=== PATIENT | male | born 1945 | race Caucasian/White ===

== ENCOUNTER 2020-12-05 09:43 | Outpatient (REF) | payer MEDICARE, SELFPAY ==
--- NOTE | 2020-12-05 09:30 | EMG_ITS ---
This is a 75-year-old man with a 4-month history of left hand numbness. There is pain. No list of medication is available. PHYSICAL EXAMINATION: On examination, he has mild weakness of the abductor pollicis brevis on the left. No atrophy. No sensory findings or Tinel's. IMPRESSION: Carpal tunnel syndrome. Nerve conduction EMG study: Moderate to severe carpal tunnel syndrome on the left. 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 Normal EMG of the left C5-T1 innervated muscles. MD THEODORA Mcconnell/JUAN / [id number]
== END 2020-12-05 09:44 | disposition home or self-care (01) ==
LOC: HO.NEURO 09:43
PROVIDERS: PCP Internal Medicine; Visit Provider Internal Medicine
DX: R20.0 Anesthesia of skin (principal)
CPT/HCPCS: 95885; 95910

== ENCOUNTER 2021-03-15 06:47 | Outpatient (REF) | payer MEDICARE, SELFPAY ==
[2021-03-15 11:12] LABS: MANUAL DIFF FLAG NO
[2021-03-15 11:19] LABS: Basophils Percent Auto 0.6 % (0-2); Eosinophils Absolute Auto 0.2 X10*3/uL (0.0-0.4); Eosinophils Percent Auto 2.7 % (0-4); Hemoglobin 13.7 g/dl (14.0-18.0); Imm Gran Abs Auto 0.01 X10*3/uL (0.00-0.03); Imm Gran Pct Auto 0.1 % (0.0-0.4); Lymphocytes Absolute Auto 1.2 X10*3/uL (1.2-4.9); Lymphocytes Percent Auto 18.2 % (20-40); Mean Corpuscular HGB Conc 32.6 g/dl (31.0-36.0); Mean Corpuscular Hemoglobin 29.1 pg (27.0-33.0); Mean Corpuscular Volume 89.2 fL (80.0-98.0); Mean Platelet Volume 11.4 fL (9.4-12.4); Monocytes Absolute Auto 0.6 X10*3/uL (0.1-1.2); Monocytes Percent Auto 9.5 % (2-11); Neutrophils Absolute Auto 4.7 x10*3/uL (2.0-8.3); Neutrophils Percent Auto 68.9 % (45-73); Platelet Count 221 X10*3/uL (160-400); Red Blood Count 4.71 X10*6/uL (4.60-5.80); Red Cell Distribution Width 11.9 % (11.0-16.0); White Blood Count 6.8 X10*3/uL (4.8-10.8)
[2021-03-15 11:36] LABS: Alanine Aminotransferase 19 U/L (0-40); Albumin Level 3.9 g/dL (3.5-5.0); Alkaline Phosphatase 57 U/L (39-117); Anion Gap 14 (12-20); Aspartate Amino Transferase 30 U/L (5-37); Bilirubin Total 0.5 mg/dL (0.0-1.0); Blood Urea Nitrogen 18 mg/dL (9-16); Calcium 9.5 mg/dL (8.4-10.2); Carbon Dioxide 22 mmol/L (22-29); Chloride 106 mmol/L (96-108); Estimated Glomerular Filt Rate > 60; Glucose Fasting 116 mg/dL (60-99); Potassium 4.3 mmol/L (3.3-5.1); Sodium 138 mmol/L (135-145); Total Protein 6.7 g/dL (6.5-8.0)
[2021-03-20 17:27] LABS: Vitamin D 25-OH, D2 <4 ng/mL; Vitamin D 25-OH, D3 27 ng/mL; Vitamin D 25-OH, Total 27 ng/mL (30-100)
== END 2021-03-15 06:48 | disposition home or self-care (01) ==
LOC: HO.HMGCLDS 06:47
PROVIDERS: Visit Provider Internal Medicine
DX: R20.0 Anesthesia of skin (principal); D64.9 Anemia, unspecified; E55.9 Vitamin D deficiency, unspecified
CPT/HCPCS: 36415; 80053; 82306; 85025

== ENCOUNTER 2021-09-13 06:00 | Outpatient (REF) | payer MEDICARE, SELFPAY ==
[2021-09-13 12:06] LABS: PSA,Total (Free>4and<10) 3.68 ng/mL (0.00-4.00); Vitamin D 25-OH Total 40.2 ng/mL (>30)
[2021-09-13 12:07] LABS: Alanine Aminotransferase 16 U/L (0-40); Albumin Level 4.1 g/dL (3.5-5.0); Alkaline Phosphatase 60 U/L (39-117); Anion Gap 16 (12-20); Aspartate Amino Transferase 24 U/L (5-37); Bilirubin Total 0.4 mg/dL (0.0-1.0); Blood Urea Nitrogen 18 mg/dL (9-16); Calcium 9.4 mg/dL (8.4-10.2); Carbon Dioxide 22 mmol/L (22-29); Chloride 107 mmol/L (96-108); Cholesterol 179 mg/dL; Estimated Glomerular Filt Rate > 60; Glucose Fasting 100 mg/dL (60-99); HDL Cholesterol 62 mg/dL; LDL Cholesterol Calculated 107 mg/dl; Potassium 4.7 mmol/L (3.3-5.1); Sodium 140 mmol/L (135-145); Triglycerides 53 mg/dL
== END 2021-09-13 06:01 | disposition home or self-care (01) ==
LOC: HO.HMGCLDS 06:00
PROVIDERS: Visit Provider Internal Medicine
DX: Z00.00 Encounter for general adult medical examination without abnormal findings (principal); Z12.5 Encounter for screening for malignant neoplasm of prostate; E55.9 Vitamin D deficiency, unspecified
CPT/HCPCS: 36415; 80053; 80061; 82306; 84153

== ENCOUNTER 2022-12-31 09:44 | Outpatient (AMB) | payer MEDICARE, SELFPAY ==
[2022-12-31 09:52] VITALS: BP 126/78; PULSE 53; O2SAT 98; BMI 26.3
--- NOTE | 2022-12-31 09:52 | MHC.PC.OV ---
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 by: Self / Same As Patient Allergies No Known Allergies [No Known Allergies*] Allergy (Verified 12/31/22 09:59) Medication List - Last Reconciled 12/31/22 by Shaila Santos MD diazepam 2 mg PO BEDTIME PRN 30 days doxazosin 4 mg PO DAILY omega-3 fatty acids (Fish Oil Concentrate) 1,000 mg PO DAILY sertraline 50 mg PO DAILY Tobacco use date assessed: 06/30/22 Fall risk assessment: No Falls in past year Last assessed Fall Risk: 12/31/22 Dental Screening Dental Screen Date: 12/31/22 Did you have a dental visit in the last 12 months?: No Did you have a dental problem in the last 6 months where you did not have access to dental care?: No Was dental information given to patient?: Patient has dentist HPI HPI Comments History of Present Illness Details This is a 77-year-old male with mild major depression and anxiety that complains today of slight memory loss when using diazepam. He occasionally use half a tablet of diazepam but still experience memory loss. I will order buspirone to substitute diazepam for his anxiety to tried for a month. Depression and anxiety somewhat stable with sertraline on a daily basis. [facility] Medical History Left carpal tunnel syndrome Hypovitaminosis D Physical exam Left arm numbness Hearing loss SHANTELLE (generalized anxiety disorder) Mild depression Bradycardia Sigmoid diverticulosis Tubular adenoma Internal hemorrhoids BPH (benign prostatic hyperplasia) Depression with anxiety Surgical History History of carpal tunnel release History of cataract surgery Total knee replacement status History of hernia repair Family History Father No problems noted. Mother Diabetes CVD (cardiovascular disease) Leukemia Brother Alcoholism Dehydration Social History Housing: House Alcohol intake: former Patient Tobacco Use Status: Former Tobacco user Tobacco use type: Cigarette e-Cigarette/Vaping Use: Never Used Second Hand Smoke Exposure: No service: No Current occupational status: employed Current occupational exposures/hazards: No Cognitive needs: No Hearing needs: Yes Vision needs: Yes Questionnaire Thrive Questionnaire Date Thrive assessed: 06/30/22 SHANTELLE-7 AMB Questionnaire SHANTELLE-7 Date SHANTELLE - 7 assessed: 06/30/22 Source: Developed by Drs. Casa Lundy, Shu Guevara, Joe Priest and colleagues, with an educational yeni from [employer]. Review of Systems Const All systems reviewed & are unremarkable except as noted in HPI and below Eyes Reports no additional complaints, Denies change in vision and Denies other visual disturbances Card Denies chest pain at rest, Denies chest pain with activity, Denies edema, Denies irregular heart rhythm, Denies claudication, Denies dyspnea, Denies dyspnea on exertion, Denies orthopnea, Denies paroxysmal nocturnal dyspnea and Denies slow heart rate Resp Denies cough, Denies dyspnea and Denies dyspnea on exertion GI Denies abdominal pain, Denies change in bowel habits, Denies excessive flatus, Denies nausea and Denies vomiting Denies urinary hesitancy, Denies urinary incontinence and Denies urinary urgency Musc Denies abnormal gait, Denies atrophy, Denies deformity and Denies limited range of motion Skin/Breast Denies bleeding lesions, Denies changing lesions and Denies rash Neuro Denies abnormal gait and Denies lack of coordination Physical exam (Primary Care) Vital Signs: Last Vital Signs Pulse 53 12/31/22 09:52 BP 126/78 12/31/22 09:52 Pulse Ox 98 12/31/22 09:52 Oxygen Delivery Method Room Air 12/31/22 09:52 BMI result Body Mass Index 26.3 Tobacco/Smoking Status: Tobacco use Status Tobacco use date assessed 06/30/22 12/31/22 09:56 Patient Tobacco Use Status Former Tobacco user 12/31/22 09:56 Tobacco use type Cigarette 12/31/22 09:56 e-Cigarette/Vaping Use Never Used 12/31/22 09:56 Thrive Assessment: Date of Thrive Assessment Date Thrive assessed 06/30/22 12/31/22 09:56 Eyes General: appearance normal, both eyes and all related structures Eyelids: Yes eyelids normal Conjunctivae: conjunctivae normal Neck Neck: Yes normal visual inspection and Yes supple Resp Effort & Inspection: normal respiratory effort Auscultation: clear to auscultation bilaterally Cardio Jugular venous distension: no JVD Rate: regular rate Rhythm: regular rhythm Heart sounds: S1 normal heart sound present and S2 normal heart sound present Extrem General: Yes full ROM Assessment and Plan Assessment & Plan (1) Mild depression: Code(s): F32.0 - Major depressive disorder, single episode, mild Plan: Continue sertraline. (2) SHANTELLE (generalized anxiety disorder): Code(s): F41.1 - Generalized anxiety disorder Plan: Continue sertraline. Use diazepam as needed. Start buspirone. Medications: New buspirone 7.5 mg PO BID 30 days 60 tabs 0RF F41.1 - Generalized anxiety disorder Coding Level of Care Code Est Pt Level 3 (32355) Diagnoses Mild depression F32.0 SHANTELLE (generalized anxiety disorder) F41.1 Time Spent (min) 18
== END 2022-12-31 10:07 | disposition home or self-care (01) ==
PROVIDERS: Visit Provider Internal Medicine
DX: F32.0 Major depressive disorder, single episode, mild (principal); F41.1 Generalized anxiety disorder
CPT/HCPCS: 99213

== ENCOUNTER 2023-03-25 09:29 | Outpatient (REF) | payer MEDICARE, SELFPAY ==
--- NOTE | ~2023-03-25 | XR_ITS ---
EXAMINATION: XR SHOULDER, RIGHT CLINICAL INFORMATION: Pain in right shoulder COMPARISON: None available. TECHNIQUE: AP external rotation, Grashey, scapular Y, and axillary views of the right shoulder. FINDINGS: The bones are intact. No fracture. Glenohumeral and acromioclavicular alignment is anatomic. There is moderate degenerative change of the acromioclavicular joint with heterotopic bone formation noted superior to the joint. There is no significant narrowing of the glenohumeral joint. There appears to be chondrocalcinosis in the glenohumeral joint space. There are also a few faint calcifications noted in the inferior aspect of the joint which represent a labral injury. XR/XR shoulder RT min 2V IMPRESSION: 1. No acute bony abnormality. 2. Chondrocalcinosis. 3. Moderate degenerative change of the acromioclavicular joint with heterotopic bone formation. 4. Probable labral injury.
== END 2023-03-25 09:30 | disposition home or self-care (01) ==
LOC: HO.XRAY 09:29
PROVIDERS: PCP Internal Medicine; Visit Provider Internal Medicine
DX: M25.511 Pain in right shoulder (principal)
CPT/HCPCS: 73030

== ENCOUNTER 2023-04-15 08:40 | Outpatient (AMB) | payer MEDICARE, SELFPAY ==
--- NOTE | 2023-04-15 08:45 | A.OFFVIS_ITS ---
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 Patient reports his pain has been going on for about one month and is a 1 on the 1-10 pain scale. He denies injections and surgery. Patient states he injured it trying to catch his dyed raw stock blower feeder that tipped over. The patient states that he was initially taking a fair amount of ibuprofen and Tylenol after the injury. He states that his discomfort has subsided and he is not taking anything for his discomfort at this time. He denies any weakness. Allergies No Known Allergies [No Known Allergies*] Allergy (Verified 04/15/23 08:52) Medication List - Last Reconciled 04/15/23 by Fuentes Lopez MD buspirone 7.5 mg PO BID 30 days diazepam 2 mg PO BEDTIME PRN 30 days doxazosin 4 mg PO DAILY omega-3 fatty acids (Fish Oil Concentrate) 1,000 mg PO DAILY sertraline 50 mg PO DAILY [facility] Medical History Left carpal tunnel syndrome Hypovitaminosis D Physical exam Left arm numbness Hearing loss SHANTELLE (generalized anxiety disorder) Mild depression Bradycardia Sigmoid diverticulosis Tubular adenoma Internal hemorrhoids BPH (benign prostatic hyperplasia) Depression with anxiety Surgical History History of carpal tunnel release History of cataract surgery Total knee replacement status History of hernia repair Family History Father No problems noted. Mother Diabetes CVD (cardiovascular disease) Leukemia Brother Alcoholism Dehydration Social History Housing: House Alcohol intake: former Patient Tobacco Use Status: Former Tobacco user Tobacco use type: Cigarette e-Cigarette/Vaping Use: Never Used Second Hand Smoke Exposure: No service: No Current occupational status: employed Current occupational exposures/hazards: No Cognitive needs: No Hearing needs: Yes Vision needs: Yes Physical Exam Vital Signs: BMI result Body Mass Index 26.3 Const Other: Well-nourished well-developed very friendly male awake alert and oriented x3 in no acute distress Extrem Other: Bilateral upper extremity examination shows good capillary refill, no skin lesions noted, normal sensation light touch Right shoulder examination shows full range of motion when compared to his left shoulder, positive impingement signs, tenderness over his acromioclavicular joint, no instability Results Reviewed Results Reviewed: X-rays of the patient's right shoulder show severe acromioclavicular joint narrowing, a type 2 acromion, no acute bony abnormalities Assessment & Plan Assessment & Plan (1) Right shoulder pain: Code(s): M25.511 - Pain in right shoulder Plan Mr. Horowitz presents with right shoulder pain most likely due to impingement syndrome. I had a lengthy discussion with the patient regarding the treatment options. At this point his symptoms are improving with activity modifications. We will hold off on a cortisone injection. He will follow up with me on an as- needed basis should his symptoms not plateau at an unacceptable level. Feel free to call me at any time should questions regarding his orthopedic management arise. I spent 19 minutes in reviewing the patient's records and imaging studies, seeing the patient and documenting in the medical record. Coding Level of Care Code New Pt Level 2 (95060) Diagnoses Right shoulder pain M25.511
[2023-04-15 08:46] VITALS: BMI 26.3
== END 2023-04-15 09:12 | disposition home or self-care (01) ==
PROVIDERS: PCP Internal Medicine; Visit Provider Orthopaedic Surgery
DX: M25.511 Pain in right shoulder (principal)
CPT/HCPCS: 99202

== ENCOUNTER → 2023-04-15 08:40 | Outpatient (BNVA) | payer MEDICARE, SELFPAY | PROVIDERS: PCP Internal Medicine; Visit Provider Orthopaedic Surgery | DX: M25.511 Pain in right shoulder (principal) | CPT/HCPCS: 99202 ==

== ENCOUNTER 2023-07-27 07:53 | Outpatient (REF) | payer MEDICARE, SELFPAY ==
[2023-07-27 09:31] LABS: Alanine Aminotransferase 20 U/L (0-40); Albumin Level 4.2 g/dL (3.5-5.0); Alkaline Phosphatase 59 U/L (39-117); Anion Gap 15 (12-20); Aspartate Amino Transferase 25 U/L (5-37); Bilirubin Total 0.5 mg/dL (0.0-1.0); Blood Urea Nitrogen 21 mg/dL (9-16); Calcium 9.9 mg/dL (8.4-10.2); Carbon Dioxide 24 mmol/L (22-29); Chloride 105 mmol/L (96-108); Cholesterol 177 mg/dL (<200); Estimated Glomerular Filt Rate > 60; Glucose Fasting 107 mg/dL (60-99); HDL Cholesterol 58 mg/dL (>40); LDL Cholesterol Calculated 108 mg/dL (<100); Sodium 140 mmol/L (135-145); Total Protein 7.2 g/dL (6.5-8.0); Triglycerides 58 mg/dL (<150)
[2023-07-27 09:49] LABS: Vitamin D 25-OH Total 51.9 ng/mL (>30)
== END 2023-07-27 07:54 | disposition home or self-care (01) ==
LOC: HO.LAB 07:53
PROVIDERS: PCP Internal Medicine; Visit Provider Internal Medicine
DX: K57.30 Diverticulosis of large intestine without perforation or abscess without bleeding (principal); E55.9 Vitamin D deficiency, unspecified; E78.5 Hyperlipidemia, unspecified
CPT/HCPCS: 36415; 80053; 80061; 82306

== ENCOUNTER 2023-07-27 08:43 | Outpatient (AMB) | payer MEDICARE, SELFPAY ==
--- NOTE | 2023-07-27 08:48 | MHC.PC.OV ---
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 by: Self / Same As Patient Allergies No Known Allergies [No Known Allergies*] Allergy (Verified 07/27/23 08:58) Medication List - Last Reconciled 07/27/23 by Shaila Santos MD buspirone 7.5 mg PO BID 30 days diazepam 2 mg PO BEDTIME PRN 30 days doxazosin 4 mg PO DAILY omega-3 fatty acids (Fish Oil Concentrate) 1,000 mg PO DAILY sertraline 50 mg PO DAILY Tobacco use date assessed: 07/27/23 Fall risk assessment: No Falls in past year Last assessed Fall Risk: 07/27/23 Dental Screening Dental Screen Date: 07/27/23 Did you have a dental visit in the last 12 months?: No Did you have a dental problem in the last 6 months where you did not have access to dental care?: No Was dental information given to patient?: Patient has dentist HPI HPI Comments History of Present Illness Details This is a 78-year-old male with mild major depression that comes for his physical exam. Depression stable with sertraline and follow-up visit requested. Denies any chest pain or shortness on breath. Has bilateral hearing loss with bilateral hearing aids. Last colonoscopy was 2020 and was normal. Labs are still pending. Patient is aware that benzodiazepines can cause addiction, sedation and memory loss. [facility] Medical History Left carpal tunnel syndrome Hypovitaminosis D Physical exam Left arm numbness Hearing loss SHANTELLE (generalized anxiety disorder) Mild depression Bradycardia Sigmoid diverticulosis Tubular adenoma Internal hemorrhoids BPH (benign prostatic hyperplasia) Depression with anxiety Surgical History History of carpal tunnel release History of cataract surgery Total knee replacement status History of hernia repair Family History Father No problems noted. Mother Diabetes CVD (cardiovascular disease) Leukemia Brother Alcoholism Dehydration Social History Housing: House Alcohol intake: former Patient Tobacco Use Status: Former Tobacco user Tobacco use type: Cigarette e-Cigarette/Vaping Use: Never Used Second Hand Smoke Exposure: No service: No Current occupational status: employed Current occupational exposures/hazards: No Cognitive needs: No Hearing needs: Yes Vision needs: Yes Questionnaire PHQ-9 Over the last 2 weeks, how often have you been bothered by any of the following problems? 1. Little interest or pleasure in doing things: not at all 2. Feeling down, depressed, or hopeless: not at all 3. Trouble falling or staying asleep, or sleeping too much: not at all 4. Feeling tired or having little energy: not at all 5. Poor appetite or overeating: not at all 6. Feeling bad about yourself - or that you are a failure or have let yourself or your family down: not at all 7. Trouble concentrating on things, such as reading the newspaper or watching television: not at all 8. Moving or speaking so slowly that other people could have noticed. Or the opposite - being so fidgety or restless that you have been moving around a lot more than usual: several days 9. Thoughts that you would be better off or of hurting yourself in some way: not at all Total score: 1 Depression Screening Interpretation: Positive Depression Screening Follow-up: Existing condition, In treatment and Follow-up Visit Requested Depression Screening Done: Yes 97962 - PHQ-9 Billing: Yes Source: Developed by Drs. Casa Lundy, Shu Guevara, Joe Priest and colleagues, with an educational yeni from [employer]. Thrive Questionnaire Date Thrive assessed: 07/27/23 I am a: Patient What is your living situation today?: I have a steady place to live Within the past 12 months, did the food you bought not last and you didn't have the money to get more?: Never true Within the past 12 months, did you worry whether your food would run out before you got money to buy more?: Never true Do you have trouble paying for medicines?: No Do you have trouble getting transportation to medical appointments?: No Do you have trouble paying your heating and electricity bill?: No Do you have trouble taking care of your child, family member or friend?: No Do you have trouble with day-to-day activities such as bathing, preparing meals, shopping, managing finances, etc.?: No Are you currently unemployed and looking for a job?: No Are you interested in more education?: No Please select the resources that you would like help with: None Currently or been in a relationship where the following occur: no concerns reported THRIVE Score: 0 AUDIT C Alcohol Use Questionnaire (AUDIT-C) 1. How often do you have a drink containing alcohol?: Never Total Score: 0 SHANTELLE-7 AMB Questionnaire SHANTELLE-7 Date SHANTELLE - 7 assessed: 07/27/23 Feeling nervous, anxious, or on edge: 2 = More than half the days Not being able to stop or control worryin = Not at all Worrying too much about different things: 0 = Not at all Trouble relaxin = Not at all Being so restless that it is hard to sit still: 0 = Not at all Becoming easily annoyed or irritable: 0 = Not at all Feeling afraid as if something awful might happen: 0 = Not at all Total SHANTELLE-7 score (0-4 normal; 5-9 mild; 10-14 moderate; 15-21 severe): 2 Source: Developed by Drs. Casa Lundy, Shu Guevara, Joe Priest and colleagues, with an educational yeni from [employer]. SHANTELLE-7 Assessment Billing SHANTELLE-7 Assessment Tool: SHANTELLE-7 Assessment 76103 Review of Systems Const All systems reviewed & are unremarkable except as noted in HPI and below Card Denies chest pain at rest, Denies chest pain with activity, Denies edema, Denies irregular heart rhythm, Denies claudication, Denies dyspnea, Denies dyspnea on exertion, Denies orthopnea, Denies paroxysmal nocturnal dyspnea and Denies slow heart rate Resp Denies cough, Denies dyspnea and Denies dyspnea on exertion GI Denies abdominal pain, Denies change in bowel habits, Denies excessive flatus, Denies nausea and Denies vomiting Neuro Denies behavioral changes and Denies confusion Psych Denies behavioral changes and Denies confusion Physical exam (Primary Care) Vital Signs: Last Vital Signs BP 120/78 07/27/23 08:49 BMI result Body Mass Index 25.5 Tobacco/Smoking Status: Tobacco use Status Tobacco use date assessed 07/27/23 07/27/23 08:55 Patient Tobacco Use Status Former Tobacco user 07/27/23 08:55 Tobacco use type Cigarette 07/27/23 08:55 e-Cigarette/Vaping Use Never Used 07/27/23 08:55 PHQ-9: PHQ-9 Score PHQ-9: Total score 1 07/27/23 09:07 Depression Screening Interpretation: Positive Depression Screening Follow-up: Existing condition, In treatment and Follow-up Visit Requested Thrive Assessment: Date of Thrive Assessment Date Thrive assessed 07/27/23 07/27/23 08:55 Currently or been in a relationship where the following occur: no concerns reported Const General: No confusion Orientation/consciousness: patient oriented x3 and No confusion Eyes General: appearance normal, both eyes and all related structures Eyelids: Yes eyelids normal Conjunctivae: conjunctivae normal Neck Neck: Yes normal visual inspection and Yes supple Resp Effort & Inspection: normal respiratory effort Auscultation: clear to auscultation bilaterally Cardio Jugular venous distension: no JVD Rate: regular rate Rhythm: regular rhythm Heart sounds: S1 normal heart sound present and S2 normal heart sound present GI Inspection: Yes normal to inspection Palpation (GI): Soft to palpation and nontender Auscultation: normal bowel sounds Skin General skin exam: no rashes or lesions noted Neuro General: patient oriented x3, no focal motor deficits and No confusion Extrem General: Yes full ROM Psych Appearance: grossly normal Immunizations tetanus-diphtheria toxoids-Td 2 Lf unit-2 Lf unit/0.5 mL IM suspension Performing Provider: Shaila Santos MD Performing Location: [facility] Administered by: AMARILYS Richardson on 07/27/23 09:13 Dose Route Admin Location Dispensed Lot Number Expiration Date NDC Concessions Manager 0.5 mL IM Right Deltoid 0.5 mL [id number] 03/28/24 [address]-4 [employer] VIS Given Date VIS Provided VIS Publication Date 07/27/23 Single Vaccine 20 Eligibility Eligibility Date Funding Source Not VFC Eligible 07/27/23 State funds Assessment and Plan Assessment & Plan (1) Physical exam: Code(s): Z00.00 - Encounter for general adult medical examination without abnormal findings Plan: Repeat in a year. (2) Mild depression: Code(s): F32.0 - Major depressive disorder, single episode, mild Plan: Continue sertraline. Follow-up visit requested. Orders: Orders Td State Immunization Today Z23 - Encounter for immunization Coding Level of Care Code Est Pt Prev Care >65y(12501) Diagnoses Physical exam Z00.00 Mild depression F32.0 Additional Codes SHANTELLE-7 Assessment Billing - SHANTELLE-7 Assessment Tool: SHANTELLE-7 Assessment [id number] ([id number]) Time Spent (min) 31
[2023-07-27 08:49] VITALS: BP 120/78; BMI 25.5
== END 2023-07-27 09:15 | disposition home or self-care (01) ==
PROVIDERS: PCP Internal Medicine; Visit Provider Internal Medicine
DX: Z00.00 Encounter for general adult medical examination without abnormal findings (principal); F32.0 Major depressive disorder, single episode, mild; Z23 Encounter for immunization
CPT/HCPCS: 90471; 90714; 99397

== ENCOUNTER 2024-02-01 07:48 | Outpatient (AMB) | payer MEDICARE, SELFPAY ==
--- OUTSIDE RECORDS SUMMARY | 2024-02-01 07:50 | XMS_ITS | Data Portability ---
Author Organization [facility] [address] Address [address] [place] [id number] Assessment No assessment recorded. Plan of Treatment Reminders Order Date Submit Date Provider Last Modified By Organization Details Last Modified Time Details Appointments None recorded. Lab None recorded. Referral orthopedic surgeon referral - Right shoulder sprain . injury happened a month ago while patient was trying to catch a falling object . Shoulders are asymmetrica l . mild weakness of the right upper extremity. 2023 024 [email or web address] Not available 17:36:48 Procedures None recorded. Surgeries None recorded. Imaging None recorded. Medication Orders None recorded. Patient TargetsNo targets recorded. Patient Instructions Encounter Date Encounter Id Patient Instructions Last Modified By Organization Details Last Modified Time 03/24/2023 [id number] shoulder pain: care instructions [email or web address] Not available 03/24/2023 17:32:22 shoulder sprain: care instructions [email or web address] Not available 03/24/2023 17:32:22 Reason for Referral Orthopedic Surgeon Referral for Sprain of shoulder Right shoulder sprain . injury happened a month ago while patient was trying to catch a falling object . Shoulders are asymmetrical . mild weakness of the right upper extremity. Referring Physician: Janell Cuba, Urgent Care, Encounter Date: 03/24/2023 Problems Name Problem SNOMED Code Status Onset Date Resolution Date Notes Provider Name and Address Organization Details Recorded Time Anxiety 05909231 Active PETAR Brewer [facility] 16:50:30 Sprain of shoulder 8990679 Active Arti Cuba NP [address] [place], [id number] , [place] 17:30:53 Problem Notes None recorded. Medical Equipment None Reported. Allergies No known drug allergies Medications Name Sig Start Date Stop Date Status Note LastModified by Organization Details LastModified Time buspirone 10 mg tablet Take 1 tablet twice a day by oral route. active Not Available Not Available No t Available sertraline active Not Available Not Av ailable Not Available Vitals Date Recorded Body height Body mass index (BMI) Body weight Oxygen saturation Oxygen saturation in Arterial blood by Pulse oximetry Heart rate Respiratory rate Body temperature Systolic blood pressure Diastolic blood pressure Provider Name and Address Organization Details Last Updated DateTime 167.64 cm 25.8 kg/m2 23854.7 8 g 99 % 99 % 78 /min 18 /min 98.3 [degF] 152 mm[Hg] 72 mm[Hg] Cindi Andrade [employer] 16:48:30 Social History Question Answer Notes LastModified by Organizat ion Details LastModified Time Tobacco Smoking Status Never Smoker Cindi de la garza [employer] [facility] 03/24/2023 16:50:54 What Is Your Level Of Alcohol Consumption? None Information not available 03/24/2023 Are You Currently Employed? No Information not available 03/24/2023 Have You Had A Flu Shot This Season? Yes Information not available 03/24/2023 What Is Your Relationship Status? Information not available 03/24/2023 Do You Use Any Illicit Or Recreational Drugs? No Information not available 03/24/2023 Have You Recently Traveled Abroad? No Information not available 03/24/2023 Are You Currently In School? No Information not available 03/24/2023 Do You Or Have You Ever Used Any Other Forms Of Tobacco Or Nicotine? No Information not available 03/24/2023 Sex: Unknown Functional Status None recorded. Mental Status None recorded. Family History Relationship Description Onset Age of this Age Resolved Age Notes LastModified by Organization Details LastModified Time Father No current problems or disability Not available 03/24 16:50:33 Mother No current problems or disability Not available 03/24 16:50:33 Medical History No medical history recorded. Past Encounters Encounter ID Performer Location Encounter Start Date Encounter Closed Date Diagnosis/Indication Diagnosis SNOMED-CT Code Diagnosis ICD10 [place] [id number] [place] [id number] [place] [address] 03/24/2023 16:29:39 03/24/2023 17:36:48 Sprain of shoulder 7060053 S43.401A Health Concerns Section Related Observation LastModified by Organization Detai ls LastModified Time None Recorded Concern Status LastModified by Organization Details LastModified Time None Recorded Advance Directives Directive None Recorded Payers Encounter Date Sequence Insurance Name Policy Number Policy Blake Covered Member ID Blake Member ID Guarantor Name 03/24/2023 2 [facility] [id number] Casa Padron Carlos Manuel [id number] Casa Horowitz 03/24/2023 1 MEDICARE [place]: [employer] Casa Padron Carlos Manuel [id number] Casa Horowitz Notes Date Note Type Note Provider Name and Address Organization Details Recorded Time text/html Shoulder UCReported bypatient.source of patient informationInformation obtained from patient; Patient arrived at Urgent Care ambulatory Hand Dominance:right Location:right Quality:dull; frequent Severity:moderate Duration:3 weeks Timing:acute Context:lifting; overuse Alleviating Factors:ice Aggravating Factors:pushing/pulling; ROM Associated Symptoms:no weakness; no numbness; no tingling; no swelling; no redness; no warmth; no ecchymosis; no catching/locking; no popping/clicking; no buckling; no grinding; no instability; no fever; no chills; no weight loss; no change in bowel/bladder habits Previous InjuryNo prior injury to affected body part Previous Treatmentnone Prior Imaging:noneNotes:imaging not available in center Patient reports to have pulled his right shoulder on 02/27 (almost a month ago) snow blowing, pt states the pain is behind his right shoulder blade and goes into his right arm and chest at times with movement. Janell Cuba NP [address] [place], [address], [place] - [facility] 04/29/2023 13:47:09
[2024-02-01 07:54] VITALS: BP 130/82; BMI 26.9
--- NOTE | 2024-02-01 07:54 | MHC.PC.OV ---
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 Required: No Accompanied by: Self / Same As Patient Allergies No Known Allergies [No Known Allergies*] Allergy (Verified 02/01/24 08:13) Medication List - Last Reconciled 02/01/24 by Shaila Santos MD buspirone 7.5 mg PO BID 30 days diazepam 2 mg PO BEDTIME PRN 30 days doxazosin 4 mg PO DAILY omega-3 fatty acids (Fish Oil Concentrate) 1,000 mg PO DAILY sertraline 50 mg PO DAILY Tobacco use date assessed: 07/27/23 Fall risk assessment: No Falls in past year Last assessed Fall Risk: 02/01/24 Dental Screening Dental Screen Date: 02/01/24 Did you have a dental visit in the last 12 months?: Yes Did you have a dental problem in the last 6 months where you did not have access to dental care?: No Was dental information given to patient?: Patient has dentist HPI HPI Comments History of Present Illness Details The patient is a 78-year-old male presenting with a follow-up for depression and anxiety management. The patient has a history of long-standing depressive disorder and anxiety disorder, currently managed with buspirone 7.5 mg twice daily for anxiety and sertraline 50 mg daily for depression. He reports that these medications effectively control his symptoms, though he experiences some fatigue as a side effect. Diazepam 2 mg is available for use as needed for anxiety but is used sparingly, approximately once a week. The patient has essential hypertension, which is currently well-controlled with doxazosin 4 mg daily. He also manages hyperlipidemia with omega-3 supplements. There is a known history of prediabetes, with prior fasting glucose readings recorded at 107 mg/dL, indicating impaired glucose tolerance. He denies any significant changes in appetite or unexpected weight fluctuations, though he self-reports a weight gain of three pounds recently, attributing it possibly to seasonal changes. He has a history of smoking and alcohol use, both of which he has since ceased. The patient denies any chest pain, shortness of breath, or episodes of bleeding but mentions increased urinary frequency without accompanying thirst, which he tries to manage by consciously increasing his fluid intake. [facility] Medical History (Updated 02/01/24 @ 08:25 by Shaila Santos MD) Left carpal tunnel syndrome Hypovitaminosis D Physical exam Left arm numbness Hearing loss SHANTELLE (generalized anxiety disorder) Mild depression Bradycardia Sigmoid diverticulosis Tubular adenoma Internal hemorrhoids BPH (benign prostatic hyperplasia) Depression with anxiety Surgical History History of carpal tunnel release History of cataract surgery Total knee replacement status History of hernia repair Family History Father No problems noted. Mother Diabetes CVD (cardiovascular disease) Leukemia Brother Alcoholism Dehydration Social History Housing: House Alcohol intake: former Patient Tobacco Use Status: Former Tobacco user Tobacco use type: Cigarette e-Cigarette/Vaping Use: Never Used Second Hand Smoke Exposure: No service: No Current occupational status: employed Current occupational exposures/hazards: No Cognitive needs: No Hearing needs: Yes Vision needs: Yes Questionnaire Thrive Questionnaire Date Thrive assessed: 07/27/23 AUDIT C Alcohol Use Questionnaire (AUDIT-C) 3. How often do you have six or more drinks on one occasion?: Never Total Score: 0 SHANTELLE-7 AMB Questionnaire SHANTELLE-7 Date SHANTELLE - 7 assessed: 07/27/23 Source: Developed by Drs. Casa Lundy, Shu Guevara, Joe Priest and colleagues, with an educational yeni from [employer]. Review of Systems Const All systems reviewed & are unremarkable except as noted in HPI and below Card Denies chest pain at rest, Denies chest pain with activity, Denies edema, Denies irregular heart rhythm, Denies claudication, Denies dyspnea, Denies dyspnea on exertion, Denies orthopnea, Denies paroxysmal nocturnal dyspnea and Denies slow heart rate Resp Denies cough, Denies dyspnea and Denies dyspnea on exertion GI Denies abdominal pain, Denies change in bowel habits, Denies excessive flatus, Denies nausea and Denies vomiting Denies urinary hesitancy, Denies urinary incontinence and Denies urinary urgency Neuro Denies behavioral changes and Denies lack of coordination Psych Denies behavioral changes Physical exam (Primary Care) Vital Signs: Last Vital Signs BP 130/82 02/01/24 07:54 BMI result Body Mass Index 26.9 Tobacco/Smoking Status: Tobacco use Status Tobacco use date assessed 07/27/23 02/01/24 08:01 Patient Tobacco Use Status Former Tobacco user 02/01/24 08:01 Tobacco use type Cigarette 02/01/24 08:01 e-Cigarette/Vaping Use Never Used 02/01/24 08:01 Thrive Assessment: Date of Thrive Assessment Date Thrive assessed 07/27/23 02/01/24 08:01 Resp Effort & Inspection: normal respiratory effort Auscultation: clear to auscultation bilaterally Cardio Jugular venous distension: no JVD Rate: regular rate Rhythm: regular rhythm Heart sounds: S1 normal heart sound present and S2 normal heart sound present Extrem General: Yes full ROM Psych Appearance: grossly normal Coding Level of Care Code Est Pt Level 4 (63046) Complex EM visit Add On G2211 Diagnoses Essential hypertension I10 Impaired glucose tolerance R73.02 Mild depression F32.0 SHANTELLE (generalized anxiety disorder) F41.1 Time Spent (min) 22 Assessment & Plan Assessment & Plan (1) Essential hypertension: Code(s): I10 - Essential (primary) hypertension Category: Medical (2) Impaired glucose tolerance: Code(s): R73.02 - Impaired glucose tolerance (oral) Category: Medical (3) Mild depression: Code(s): F32.0 - Major depressive disorder, single episode, mild Category: Medical (4) SHANTELLE (generalized anxiety disorder): Code(s): F41.1 - Generalized anxiety disorder Category: Medical Plan - Reassess fasting blood glucose to further evaluate prediabetes. - Continue current regimen for depression with sertraline and monitor for fatigue as a side effect. - Maintain current buspirone dosage for anxiety with as-needed use of diazepam. - Monitor weight dynamics given recent weight gain report, consider dietary consultation if changes persist. - Continue current management for hypertension with doxazosin. - Annual lipid panel to monitor hyperlipidemia. Patient was informed and verbally consented to the use of an ambient scribe for clinic note documentation during this visit. I discussed with the patient the need for blood work to reassess fasting glucose levels due to prior readings indicating prediabetes. We reviewed the current medication regimen for depression and anxiety, noting these conditions are well-controlled but acknowledging the side effect of fatigue. I advised continuing with the current dosages and monitoring symptoms. We talked about the benign nature of the slight leg swelling when wearing socks. Given the patient's previous history of smoking and alcohol use, I highlighted the importance of continued abstinence for overall cardiovascular health. We agreed upon a follow-up for July to reassess his condition and discuss any further necessary interventions. Orders: Orders Complete Blood Count Auto Diff Today D64.9 - Anemia, unspecified IRON PROFILE Today D64.9 - Anemia, unspecified Vitamin D 25-OH Total Today E55.9 - Vitamin D deficiency, unspecified Comprehensive [place]. Panel Fast Today R73.02 - Impaired glucose tolerance (oral) Patient Instructions: - Schedule fasting blood work for glucose and hemoglobin A1c testing. - Continue current medications as prescribed. - Monitor weight and dietary intake; consider keeping a food diary. - Maintain hydration by consciously drinking more water throughout the day. - Follow up in July or sooner if experiencing any new symptoms or worsening of current symptoms.
== END 2024-02-01 09:15 | disposition home or self-care (01) ==
PROVIDERS: PCP Internal Medicine; Visit Provider Internal Medicine
DX: I10 Essential (primary) hypertension (principal); R73.02 Impaired glucose tolerance (oral); F32.0 Major depressive disorder, single episode, mild; F41.1 Generalized anxiety disorder

== ENCOUNTER 2024-02-01 07:48 | Outpatient (REF) | payer MEDICARE, SELFPAY ==
[2024-02-01 16:30] LABS: MANUAL DIFF FLAG NO
[2024-02-01 16:35] LABS: Basophils Absolute Auto 0.1 X10*3/uL (0.0-0.2); Basophils Percent Auto 0.7 % (0-2); Eosinophils Absolute Auto 0.2 X10*3/uL (0.0-0.4); Eosinophils Percent Auto 2.4 % (0-4); Hematocrit 40.1 % (42.0-52.0); Hemoglobin 13.4 g/dl (14.0-18.0); Imm Gran Abs Auto 0.02 X10*3/uL (0.00-0.03); Imm Gran Pct Auto 0.3 % (0.0-0.4); Lymphocytes Absolute Auto 1.8 X10*3/uL (1.2-4.9); Lymphocytes Percent Auto 25.3 % (20-40); Mean Corpuscular HGB Conc 33.4 g/dl (31.0-36.0); Mean Corpuscular Hemoglobin 29.3 pg (27.0-33.0); Mean Corpuscular Volume 87.7 fL (80.0-98.0); Mean Platelet Volume 11.1 fL (9.4-12.4); Monocytes Absolute Auto 0.8 X10*3/uL (0.1-1.2); Monocytes Percent Auto 11.1 % (2-11); Neutrophils Absolute Auto 4.4 x10*3/uL (2.0-8.3); Neutrophils Percent Auto 60.2 % (45-73); Platelet Count 224 X10*3/uL (160-400); Red Blood Count 4.57 X10*6/uL (4.60-5.80); Red Cell Distribution Width 11.9 % (11.0-16.0); White Blood Count 7.2 X10*3/uL (4.8-10.8)
[2024-02-01 17:13] LABS: Alanine Aminotransferase 23 U/L (0-40); Alkaline Phosphatase 58 U/L (39-117); Anion Gap 11 (12-20); Aspartate Amino Transferase 31 U/L (5-37); Bilirubin Total 0.6 mg/dL (0.0-1.0); Blood Urea Nitrogen 14 mg/dL (9-16); Calcium 8.6 mg/dL (8.4-10.2); Carbon Dioxide 25 mmol/L (22-29); Chloride 106 mmol/L (96-108); Estimated Glomerular Filt Rate > 60; Glucose Fasting 81 mg/dL (60-99); Iron 97 mcg/dL (45-160); Percent Iron Saturation 37 % (15-50); Potassium 3.7 mmol/L (3.3-5.1); Sodium 138 mmol/L (135-145); Total Iron Binding Capacity 261 mcg/dL (228-428); Unsaturated Iron Binding 164 ug/dL
[2024-02-01 17:29] LABS: Vitamin D 25-OH Total 66.3 ng/mL (>30)
== END 2024-02-01 07:49 | disposition home or self-care (01) ==
LOC: HO.HMGCLDS 07:48
PROVIDERS: PCP Internal Medicine; Visit Provider Internal Medicine
DX: D64.9 Anemia, unspecified (principal); R73.02 Impaired glucose tolerance (oral); E55.9 Vitamin D deficiency, unspecified; I10 Essential (primary) hypertension; F32.0 Major depressive disorder, single episode, mild; F41.1 Generalized anxiety disorder
CPT/HCPCS: 36415; 80053; 82306; 83540; 85025; 99212

== ENCOUNTER 2024-08-01 08:41 | Outpatient (AMB) | payer MEDICARE, SELFPAY ==
--- NOTE | 2024-08-01 08:53 | A.OFFPC_ITS ---
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 Accompanied by: Self / Same As Patient Allergies No Known Allergies [No Known Allergies*] Allergy (Verified 08/01/24 09:01) Medication List - Last Reconciled 08/01/24 by Shaila Santos MD buspirone 7.5 mg PO BID 30 days diazepam 2 mg PO BEDTIME PRN 30 days doxazosin 4 mg PO DAILY omega-3 fatty acids (Fish Oil Concentrate) 1,000 mg PO DAILY sertraline 50 mg PO DAILY Tobacco use date assessed: 08/01/24 Fall risk assessment: No Falls in past year Last assessed Fall Risk: 08/01/24 Dental Screening Dental Screen Date: 08/01/24 Did you have a dental visit in the last 12 months?: Yes Did you have a dental problem in the last 6 months where you did not have access to dental care?: No Was dental information given to patient?: Patient has dentist HPI HPI Comments History of Present Illness Details The patient is a 79-year-old male presenting for a physical exam and preventative care. He has a history of tubular adenoma, with the last colonoscopy performed in 2019. The agronomy location manager recommended a follow-up in 2024, although colonoscopies typically cease at age 75. The patient has mild major depression with anxiety, managed with sertraline 50 mg and buspirone 7.5 mg twice daily. He also takes diazepam 2 mg at bedtime and doxazosin 4 mg, along with omega-3 supplements. The patient has a history of anemia, noted as a minor issue in recent blood work. A repeat fasting blood work is planned in six months. Surgical history includes carpal tunnel release, cataract surgery, bilateral knee replacements, and two hernia repairs. His father lived to without known health issues, while his mother had diabetes, leukemia, and heart disease. The patient has a history of smoking and alcohol use, both of which he has ceased. He denies experiencing chest pain or dyspnea. [facility] Medical History (Updated 08/01/24 @ 09:12 by Shaila Santos MD) Left carpal tunnel syndrome Hypovitaminosis D Physical exam Left arm numbness Hearing loss SHANTELLE (generalized anxiety disorder) Mild depression Bradycardia Sigmoid diverticulosis Tubular adenoma Internal hemorrhoids BPH (benign prostatic hyperplasia) Depression with anxiety Surgical History History of carpal tunnel release History of cataract surgery Total knee replacement status History of hernia repair Family History Father No problems noted. Mother Diabetes CVD (cardiovascular disease) Leukemia Brother Alcoholism Dehydration Social History Housing: House Alcohol intake: former Patient Tobacco Use Status: Former Tobacco user Tobacco use type: Cigarette e-Cigarette/Vaping Use: Never Used Second Hand Smoke Exposure: No service: No Current occupational status: employed Current occupational exposures/hazards: No Cognitive needs: No Hearing needs: Yes Vision needs: Yes Questionnaire PHQ-9 Over the last 2 weeks, how often have you been bothered by any of the following problems? 1. Little interest or pleasure in doing things: not at all 2. Feeling down, depressed, or hopeless: several days 3. Trouble falling or staying asleep, or sleeping too much: not at all 4. Feeling tired or having little energy: not at all 5. Poor appetite or overeating: not at all 6. Feeling bad about yourself - or that you are a failure or have let yourself or your family down: not at all 7. Trouble concentrating on things, such as reading the newspaper or watching television: not at all 8. Moving or speaking so slowly that other people could have noticed. Or the opposite - being so fidgety or restless that you have been moving around a lot more than usual: not at all 9. Thoughts that you would be better off or of hurting yourself in some way: not at all Total score: 1 Depression Screening Interpretation: Negative Depression Screening Done: Yes 39327 - PHQ-9 Billing: Yes Source: Developed by Drs. Caas Lundy, Shu Guevara, Joe Priest and colleagues, with an educational yeni from [employer]. Thrive Questionnaire Date Thrive assessed: 07/25/24 I am a: Patient What is your living situation today?: I have a steady place to live Within the past 12 months, did the food you bought not last and you didn't have the money to get more?: Never true Within the past 12 months, did you worry whether your food would run out before you got money to buy more?: Never true Do you have trouble paying for medicines?: No Do you have trouble getting transportation to medical appointments?: No Do you have trouble paying your heating and electricity bill?: No Do you have trouble taking care of your child, family member or friend?: No Do you have trouble with day-to-day activities such as bathing, preparing meals, shopping, managing finances, etc.?: No Are you currently unemployed and looking for a job?: No Are you interested in more education?: No Please select the resources that you would like help with: None Currently or been in a relationship where the following occur: No concerns reported THRIVE Score: 0 AUDIT C Alcohol Use Questionnaire (AUDIT-C) 1. How often do you have a drink containing alcohol?: Never Total Score: 0 Score Reviewed/Action Taken: No SHANTELLE-7 AMB Questionnaire SHANTELLE-7 Date SHANTELLE - 7 assessed: 08/01/24 Feeling nervous, anxious, or on edge: 1 = Several days Not being able to stop or control worryin = Several days Worrying too much about different things: 0 = Not at all Trouble relaxin = Not at all Being so restless that it is hard to sit still: 0 = Not at all Becoming easily annoyed or irritable: 0 = Not at all Feeling afraid as if something awful might happen: 0 = Not at all Total SHANTELLE-7 score (0-4 normal; 5-9 mild; 10-14 moderate; 15-21 severe): 2 Source: Developed by Drs. Casa Lundy, Shu Guevara, Joe Priest and colleagues, with an educational yeni from [employer]. SHANTELLE-7 Assessment Billing SHANTELLE-7 Assessment Tool: SHANTELLE-7 Assessment 49336 Review of Systems Const All systems reviewed & are unremarkable except as noted in HPI and below Card Denies chest pain at rest, Denies chest pain with activity, Denies edema, Denies irregular heart rhythm, Denies claudication, Denies dyspnea, Denies dyspnea on exertion, Denies orthopnea, Denies paroxysmal nocturnal dyspnea and Denies slow heart rate Resp Denies cough, Denies dyspnea and Denies dyspnea on exertion GI Denies abdominal pain, Denies change in bowel habits, Denies excessive flatus, Denies nausea and Denies vomiting Denies urinary hesitancy, Denies urinary incontinence and Denies urinary urgency Physical exam (Primary Care) Vital Signs: Last Vital Signs BP 132/80 08/01/24 08:55 BMI result Body Mass Index 25.7 Tobacco/Smoking Status: Tobacco use Status Tobacco use date assessed 08/01/24 08/01/24 08:58 Patient Tobacco Use Status Former Tobacco user 08/01/24 08:58 Tobacco use type Cigarette 08/01/24 08:58 e-Cigarette/Vaping Use Never Used 08/01/24 08:58 PHQ-9: PHQ-9 Score PHQ-9: Total score 1 08/01/24 08:58 Depression Screening Interpretation: Negative Thrive Assessment: Date of Thrive Assessment Date Thrive assessed 07/25/24 08/01/24 08:58 Currently or been in a relationship where the following occur: No concerns reported [facility] Head: Yes normal to inspection, Yes normocephalic and Yes atraumatic Ears: external ears normal Eyes General: appearance normal, both eyes and all related structures Eyelids: Yes eyelids normal Conjunctivae: conjunctivae normal Neck Neck: Yes normal visual inspection and Yes supple Resp Effort & Inspection: normal respiratory effort Auscultation: clear to auscultation bilaterally Cardio Jugular venous distension: no JVD Rate: regular rate Rhythm: regular rhythm Heart sounds: S1 normal heart sound present and S2 normal heart sound present GI Inspection: Yes normal to inspection Palpation (GI): Soft to palpation and nontender Auscultation: normal bowel sounds Skin General skin exam: no rashes or lesions noted Neuro General: no focal motor deficits Extrem General: Yes full ROM Psych Appearance: grossly normal Coding Level of Care Code Est Pt Prev Care >65y(99350) Diagnoses Physical exam Z00.00 Screen for colon cancer Z12.11 Mild depression F32.0 Additional Codes PHQ-9 - 87561 - PHQ-9 Billing: Yes ([id number]) SHANTELLE-7 Assessment Billing - SHANTELLE-7 Assessment Tool: SHANTELLE-7 Assessment 65225 ([id number]) Time Spent (min) 30 Assessment & Plan Assessment & Plan (1) Physical exam: Code(s): Z00.00 - Encounter for general adult medical examination without abnormal findings Category: Medical (2) Screen for colon cancer: Code(s): Z12.11 - Encounter for screening for malignant neoplasm of colon Category: Medical (3) Mild depression: Code(s): F32.0 - Major depressive disorder, single episode, mild Category: Medical Plan The patient will continue with his current medication regimen for mild major depression with anxiety, including sertraline, buspirone, and diazepam. A follow-up with gastroenterology is recommended to discuss the necessity of a colonoscopy in 2024, given the history of tubular adenoma. Preventative care measures include maintaining up-to-date vaccinations, with the pneumonia vaccine administered today and tetanus vaccination valid until 2033. A repeat fasting blood work is planned in six months to monitor anemia. Patient was informed and verbally consented to the use of an ambient scribe for clinic note documentation during this visit. I discussed with the patient the importance of continuing his current medication regimen for managing mild major depression with anxiety. We reviewed the need for a follow-up with gastroenterology to determine the necessity of a colonoscopy in 2024 due to his history of tubular adenoma. I emphasized the importance of staying up-to-date with vaccinations, including the pneumonia vaccine administered today and the tetanus vaccine valid until 2033. We also planned to repeat fasting blood work in six months to monitor his anemia. Orders: Orders Lipid Panel 6 Months E78.5 - Hyperlipidemia, unspecified Complete Blood Count Auto Diff 6 Months D64.9 - Anemia, unspecified IRON PROFILE 6 Months D64.9 - Anemia, unspecified Comprehensive [place]. Panel Fast 6 Months R73.02 - Impaired glucose tolerance (oral) Referrals Gastroenterology Referral Z12.11 - Encounter for screening for malignant neoplasm of colon Patient Instructions: - Continue taking your medications as prescribed for depression and anxiety. - Schedule a follow-up with gastroenterology to discuss the need for a colonoscopy in 2024. - Keep your vaccinations up to date, including the pneumonia and tetanus vaccines. - Plan to have fasting blood work repeated in six months.
[2024-08-01 08:55] VITALS: BP 132/80; BMI 25.7
--- OUTSIDE RECORDS SUMMARY | 2024-08-01 09:07 | XMS_ITS | Data Portability ---
Author Organization [facility] [address] Address [address] [place] [id number] Assessment No assessment recorded. Plan of Treatment [...] By Organization Details Last Modified Time 03/24/2023 [id number] shoulder pain: care instructions [email or web address] Not available [...] and Address Organization Details Recorded Time Anxiety [id number] Active PETAR Brewer [facility] 16:50:30 Sprain of shoulder [id number] Active Arti Cuba NP [address] [place], [id number] , [employer] 17:30:53 Problem Notes None recorded. Medical Equipment [...] Last Updated DateTime 167.64 cm 25.8 kg/m2 12322.7 8 g 99 % 99 % 78 /min 18 /min 98.3 [degF] 152 mm[Hg] 72 mm[Hg] Cindi Andrade [employer] 16:48:30 Social History Question Answer Notes LastModified by [facility] Details LastModified Time Tobacco Smoking Status Never Smoker [employer] [employer] 03/24/2023 16:50:54 Have You Had A Flu Shot This Season? Yes Information not available 03/24/2023 What Is Your Relationship Status? Information not available 03/24/2023 Have You Recently Traveled Abroad? No Information not available 03/24/2023 Are You Currently In School? No Information not available 03/24/2023 Sex: Unknown Functional Status Question Answer Note LastModified by [employer] Details LastModified Time Do you use any illicit or recreational drugs? No Information not available 03/24/2023 Do you or have you ever used any other forms of tobacco or nicotine? No Information not available 03/24/2023 What is your level of alcohol consumption? None Information not available 03/24/2023 Are you currently employed? No Information not available 03/24/2023 Mental Status None recorded. Family History Relationship [...] Diagnosis/Indication Diagnosis SNOMED-CT Code Diagnosis ICD10 Code Diagnosis Note [id number] Janell [place], [place] [address] [place] [address] 03/24/2023 16:29:39 03/24/2023 17:36:48 Sprain of shoulder [id number] S43.401A Rest and protect your shoulder. Try to stop or reduce any action that causes pain.If your doctor gave you a sling or immobilize r, wear it as directed. A sling or immobilize r supports your shoulder and may make you more comfortabl e.Put ice or a cold pack on your shoulder for 10 to 20 minutes at a time. Try to do this every 1 to 2 hours for the next 3 days (when you are awake) or until the swelling goes down. Put a thin cloth between the ice and your skin. Some doctors suggest alternatin g between hot and cold.Be safe with medicines. Read and follow all instructio ns on the label.If the doctor gave you a prescripti on medicine for pain, take it as prescribed .If you are not taking a prescripti on pain medicine, ask your doctor if you can take an over-the-c ounter medicine.F or the first day or two after an injury, avoid things that might increase swelling, such as hot showers, hot tubs, or hot packs.Afte r 2 or 3 days, if your swelling is gone, apply a heating pad set on low or a warm cloth to your shoulder. This helps keep your shoulder flexible. Some doctors suggest that you go back and forth between hot and cold. Put a thin cloth between the heating pad and your skin.Follo w your doctor's or physical therapist' s directions for exercises. Return to your usual level of activity slowly. Health Concerns Section Related Observation LastModified by Organization Detai ls LastModified Time None Recorded Concern Status LastModified by Organization Details LastModified Time None Recorded Advance Directives Directive None Recorded Payers Insurance Date Sequence Insurance Name Policy Number Policy Blake Covered Member ID Blake Member ID Guarantor Name 04/24/2023 1 [facility] MEDICARE ADVANTAGE PLAN (MEDICARE REPLACEMENT HMO) [id number] Casa Horowitz [id number] Casa Horowitz 04/24/2023 2 [facility] [id number] Casa Horowitz [id number] Casa Horowitz 04/24/2023 1 MEDICARE B-[place]: [facility] Casa Horowitz [id number] Casa Horowitz Notes Date Note Type Note Provider Name and Address Organization Details Recorded Time 4 text/html Shoulder UCReported bypatient.source of patient informationInformation [...] times with movement. Janell Cuba NP [address] [place], [address], [place] - [facility] 04/29/2023 13:47:09
== END 2024-08-01 09:12 | disposition home or self-care (01) ==
LOC: HO.HMCH 08:42
PROVIDERS: PCP Internal Medicine; Visit Provider Internal Medicine
DX: Z00.00 Encounter for general adult medical examination without abnormal findings (principal); Z12.11 Encounter for screening for malignant neoplasm of colon; F32.0 Major depressive disorder, single episode, mild

== ENCOUNTER → 2024-08-01 08:41 | Outpatient (BNVA) | payer MEDICARE, SELFPAY | PROVIDERS: PCP Internal Medicine; Visit Provider Internal Medicine | DX: Z00.00 Encounter for general adult medical examination without abnormal findings (principal); F32.0 Major depressive disorder, single episode, mild; D64.9 Anemia, unspecified; F41.9 Anxiety disorder, unspecified; E78.5 Hyperlipidemia, unspecified; R73.02 Impaired glucose tolerance (oral); Z87.891 Personal history of nicotine dependence | CPT/HCPCS: 96127; 99397 ==

== ENCOUNTER 2025-01-31 08:02 | Outpatient (AMB) | payer MEDICARE, SELFPAY ==
--- NOTE | 2025-01-31 08:13 | MHC.PC.OV ---
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 Accompanied by: Self / Same As Patient Allergies No Known Allergies (No Known Allergies*) Allergy (Verified 01/31/25 08:34) Medication List - Last Reconciled 01/31/25 by Shaila Santos MD buspirone 7.5 mg PO BID 30 days diazepam 2 mg PO BEDTIME PRN 30 days doxazosin 4 mg PO DAILY multivitamin 1 tab PO DAILY omega-3 fatty acids (Fish Oil Concentrate) 1,000 mg PO DAILY [prevagen Take one capsule daily] sertraline 50 mg PO DAILY Tobacco use date assessed: 08/01/24 Fall risk assessment: No Falls in past year Last assessed Fall Risk: 01/31/25 Dental Screening Dental Screen Date: 08/01/24 HPI HPI Comments History of Present Illness Details The patient is a 79 year old male presenting for a follow-up on his conditions. His current medications include buspirone 7.5 mg twice a day for anxiety, thiazepan 2 mg at bedtime, doxazosin 4 mg, multivitamins, omega-3, and sertraline 50 mg for depression with anxiety. The patient reports no known drug allergies. His depression with anxiety has been well-controlled, although he reports feeling tired. He has a history of smoking and alcohol use, both of which he has quit. Regarding immunizations, the patient has received the flu and RSV vaccines for the year. His last blood test was in January of the previous year. [facility] Medical History (Updated 01/31/25 @ 09:28 by Shaila Santos MD) Essential hypertension Left carpal tunnel syndrome Hypovitaminosis D Physical exam Left arm numbness Hearing loss SHANTELLE (generalized anxiety disorder) Mild depression Bradycardia Sigmoid diverticulosis Tubular adenoma Internal hemorrhoids BPH (benign prostatic hyperplasia) Depression with anxiety Surgical History History of carpal tunnel release History of cataract surgery Total knee replacement status History of hernia repair Family History Father No problems noted. Mother Diabetes CVD (cardiovascular disease) Leukemia Brother Alcoholism Dehydration Social History Housing: House Alcohol intake: former Patient Tobacco Use Status: Former Tobacco user Tobacco use type: Cigarette e-Cigarette/Vaping Use: Never Used Second Hand Smoke Exposure: No service: No Current occupational status: employed Current occupational exposures/hazards: No Cognitive needs: No Hearing needs: Yes Vision needs: Yes Questionnaire Thrive Questionnaire Date Thrive assessed: 07/25/24 I am a: Patient What is your living situation today?: I have a steady place to live Within the past 12 months, did the food you bought not last and you didn't have the money to get more?: Never true Within the past 12 months, did you worry whether your food would run out before you got money to buy more?: Never true Do you have trouble paying for medicines?: No Do you have trouble getting transportation to medical appointments?: No Do you have trouble paying your heating and electricity bill?: No Do you have trouble taking care of your child, family member or friend?: No Do you have trouble with day-to-day activities such as bathing, preparing meals, shopping, managing finances, etc.?: No Are you currently unemployed and looking for a job?: No Are you interested in more education?: No Please select the resources that you would like help with: None Currently or been in a relationship where the following occur: No concerns reported THRIVE Score: 0 SHANTELLE-7 AMB Questionnaire SHANTELLE-7 Date SHANTELLE - 7 assessed: 08/01/24 Source: Developed by Drs. Casa Lundy, Shu Guevara, Joe Priest and colleagues, with an educational yeni from [employer]. Review of Systems Const All systems reviewed & are unremarkable except as noted in HPI and below Card Denies chest pain at rest, Denies chest pain with activity, Denies edema, Denies irregular heart rhythm, Denies claudication, Denies dyspnea, Denies dyspnea on exertion, Denies orthopnea, Denies paroxysmal nocturnal dyspnea and Denies slow heart rate Resp Denies cough, Denies dyspnea and Denies dyspnea on exertion Physical exam (Primary Care) Vital Signs: Last Vital Signs Temp 97.9 F 01/31/25 08:14 Pulse 57 01/31/25 08:14 Resp 18 01/31/25 08:14 BP 130/78 01/31/25 08:14 Pulse Ox 97 01/31/25 08:14 Oxygen Delivery Method Room Air 01/31/25 08:14 BMI result Body Mass Index 26.1 Tobacco/Smoking Status: Tobacco use Status Tobacco use date assessed 08/01/24 01/31/25 08:20 Patient Tobacco Use Status Former Tobacco user 01/31/25 08:20 Tobacco use type Cigarette 01/31/25 08:20 e-Cigarette/Vaping Use Never Used 01/31/25 08:20 Thrive Assessment: Date of Thrive Assessment Date Thrive assessed 07/25/24 01/31/25 08:20 Currently or been in a relationship where the following occur: No concerns reported Resp Effort & Inspection: normal respiratory effort Auscultation: clear to auscultation bilaterally Cardio Jugular venous distension: no JVD Rate: regular rate Rhythm: regular rhythm Heart sounds: S1 normal heart sound present and S2 normal heart sound present Extrem General: Yes full ROM Psych Appearance: grossly normal Immunizations pneumoc 20-julián conj-dip cr(PF) 0.5 mL IM syringe Performing Provider: Shaila Santos MD Performing [facility] Administered by: Ilda Hutchinson LPN on 01/31/25 08:52 Dose Route Admin Location Dispensed Lot Number Expiration Date [facility] [employer] Operator 0.5 mL IM Left Deltoid 0.5 mL [id number] 11/15/25 [employer] Total Dispensed Waste 0.5 mL 0 % VIS Given Date VIS Provided VIS Publication Date 01/31/25 Single Vaccine 24 Eligibility Eligibility Date Funding Source Not [facility] Eligible 01/31/25 Private Coding Level of Care Code Est Pt Level 3 (90606) Diagnoses Mild depression F32.0 SHANTELLE (generalized anxiety disorder) F41.1 Time Spent (min) 19 Assessment & Plan Assessment & Plan (1) Mild depression: Code(s): F32.0 - Major depressive disorder, single episode, mild Category: Medical (2) SHANTELLE (generalized anxiety disorder): Code(s): F41.1 - Generalized anxiety disorder Category: Medical Plan Plan 1. Depression With Anxiety The patient's depression with anxiety is reportedly well-controlled with his current medication regimen, which includes buspirone, thiazepan, and sertraline. He will continue his current medications without change. 2. Preventative Care The patient has received his annual flu vaccine and the RSV vaccine. The PCV20 pneumonia vaccine was recommended and administered during the visit. Fasting lab work, including cholesterol and sugar levels, will be ordered for the patient to complete at his convenience within the next three months. Orders: Orders Pneumococcal 20 Immunization Today Z23 - Encounter for immunization Vitamin D 25-OH Total Today E55.9 - Vitamin D deficiency, unspecified
[2025-01-31 08:14] VITALS: BP 130/78; PULSE 57; RESP 18; TEMP 36.6; O2SAT 97; BMI 26.1
--- OUTSIDE RECORDS SUMMARY | 2025-01-31 08:15 | XMS_ITS | Data Portability ---
Author Organization PETAR Beaver s [address] Address [address] [place] [address] Assessment No assessment recorded. Plan of Treatment [...] By Organization Details Last Modified Time 03/24/2023 [id number] shoulder pain: care instructions [email or web address] Not available [...] and Address Organization Details Recorded Time Anxiety 96023713 Active PETAR Brewer [facility] 16:50:30 Sprain of shoulder 1262009 Active 024 Janell Cuba NP [address] [place], [address] , [employer] 17:30:53 Problem Notes None recorded. Medical Equipment [...] mass index (BMI) Body weight Oxygen saturation Pain severity - 0-10 verbal numeric rating [Score] - Reported Heart rate Respiratory rate Body temperature Systolic And Diastolic Provider Name and Address Organization Details Last Updated DateTime 167.64 cm 25.8 kg/m2 86714.7 8 g 99 % 0 78 /min 18 /min 98.3 [degF] 152/72 mm[Hg] Cindi Andrade [employer] 16:48:30 Social History Question Answer Notes LastModified by [employer] Details LastModified Time Tobacco Smoking Status Never Smoker Cindi Andrade holli [employer] [facility] 03/24/2023 16:50:54 Have You Had A Flu Shot This Season? Yes Information not available 03/24/2023 What Is Your Relationship Status? Information not available 03/24/2023 Have You Recently Traveled Abroad? No Information not available 03/24/2023 Are You Currently In School? No Information not available 03/24/2023 Sex: Unknown Functional Status Question Answer Note LastModified by [employer] Details LastModified Time Do you use any [...] Diagnosis SNOMED-CT Code Diagnosis ICD10 Code Diagnosis IMO Codes Diagnosis Note [id number] Janell Cuba [place] [address] [place] [address] 03/24/2023 16:29:39 03/24/2023 17:36:48 Sprain of shoulder 6833159 S43.401A Rest and protect your shoulder. Try [...] Policy Number Policy Blake Covered Member ID Lbake Member ID Guarantor Name 04/24/2023 1 [employer] - MEDICARE ADVANTAGE PLAN (MEDICARE REPLACEMENT HMO) [id number] 04 [facility] [id number] [facility] 04/24/2023 2 [facility] [id number] [facility] [id number] [facility] 04/24/2023 1 MEDICARE B-[place]: [facility] [id number] [facility] Notes Date Note Type Note Provider Name and Address Organization Details Recorded Time 03/24/2023 text/html Shoulder UCRepor evelin by PatientHPIFor source of patient information, patient reportsinformation obtained from patientandpatient arrived at urgent care ambulatory. For hand dominance, patient reportsright. For location, patient reportsright. For quality, patient reportsdullandfrequent. For severity, patient reportsmoderate. For duration, patient reports3 weeks. For timing, patient reportsacute. For context, patient reportsliftingandoverus e. For alleviating factors, patient reportsice. For aggravating factors, patient reportspushing/pullinga ndrom. For associated symptoms, patient reportsno weakness,no numbness,no tingling,no swelling,no redness,no warmth,no ecchymosis,no catching/locking,no popping/clicking,no buckling,no grinding,no instability,no fever,no chills,no weight loss, andno change in bowel/bladder habits. For previous injury, patient reportsno prior injury to affected body part. For previous treatment, patient reportsnone. For prior imaging, patient reportsnone.imaging not available in center Patient reports to have pulled his right shoulder on 02/27 (almost a month ago) snow blowing, pt states the pain is behind his right shoulder blade and goes into his right arm and chest at times with movement. Janell Cuba NP [address] [place], [address], [place] - [facility] 04/29/2023 13:47:09
--- OUTSIDE RECORDS SUMMARY | 2025-01-31 08:15 | XMS_ITS | Data Portability ---
Author Organization [facility] Internal Medicine, Telehealth Patient Home Address [address] [place] [id number] Assessment No assessment recorded. Plan of Treatment Reminders Order Date Submit Date Provider Last Modified By Organization Details Last Modified Time Details Appointments None recorded. Lab urinalysis , dipstick [address] [place] [address] Internal Medicine, [address] [place] [address], [facility] [place], [address], 9 13:44:42 vitamin D, 25-hydroxy , total, serum 2018 hrubner Not available 9 08:17:33 CMP, serum or plasma 2018 hrubner Not available 9 08:17:33 CBC 2018 hrubner Not available 9 08:17:33 lipids, total, serum 2018 jvanasse Not available 9 13:51:41 PSA, total + free, serum or plasma 2018 hrubner Not available 9 08:17:33 vitamin D, 25-hydroxy , total, serum 2017 018 [facility] Internal Medicine, [address] [place] [address] [place], [address], 8 08:32:05 CMP, serum or plasma 2017 018 [facility] Internal Medicine, [address] [place] [address], [place], [address], 8 08:32:05 CBC 2017 HUNG [facility] Internal Medicine, [address] [place] [address], [address], [place], [address], 8 08:32:06 PSA, total + free, serum or plasma 2017 [facility], [address] [place] [address], [address], [place], [address], 8 08:35:57 urinalysis , dipstick 2017 freida [facility], [address] [place] [address], [address], [place], [address], 8 09:33:57 hepatitis C Ab, serum 2017 [facility], [address] [place] [address], [address], [place], [address], 8 08:35:57 Referral urologist referral 2017 [facility] Not available 8 09:25:06 Procedures None recorded. Surgeries None recorded. Imaging US, abdominal aorta - screening for AAA 2018 019 [facility], [facility], [place], [address], 9 08:10:16 Medication Orders None recorded. Patient TargetsNo targets recorded. Patient Instructions Encounter Date Encounter Id Patient Instructions Last Modified By Organization Details Last Modified Time 04/19/2018 [id number] knee pain or injury: care instructions Not available 04/19/2018 15:54:25 high blood pressure: care instructions Not available 04/19/2018 15:54:25 learning about high blood pressure Not available 04/19/2018 15:54:25 benign prostatic hyperplasia: care instructions Not available 04/19/2018 15:54:25 12/15/2018 [id number] advance care planning: care instructions Not available 12/15/2018 13:44:42 learning about healthy weight Not available 12/15/2018 13:48:42 A healthy lifestyle: care instructions Not available 12/15/2018 13:49:00 Reason for Referral Urologist Referral for Benig n prostatic hyperplasia Referring Physician: Belinda Guerin, Internal Medicine, Encounter Date: 11/25/2017 Results Created Date Observation Date Name Description Value Unit Range Abnormal Flag Note LastModifiedBy Organization Detail LastModifiedTime 11/26/19 18 11/25/2017 urina lysis , dipst ick Leukocytes Negati ve Not Available [facility] Internal Medicine [address] [facility] [address], [place], [address], 11/25/2017 09:13:18 11/26/19 18 11/25/2017 urina lysis , dipst ick Nitrite negati ve Not Available [facility] Internal Medicine [address] [facility] [address], [place], [address], 11/25/2017 09:13:18 11/26/19 18 11/25/2017 urina lysis , dipst ick Urobilinogen .2 Not Available [facility] Internal Medicine [address] [facility] [address] [address], [place], [address], 11/25/2017 09:13:18 11/26/19 18 11/25/2017 urina lysis , dipst ick Protein Negati ve Not Available [facility] Internal Medicine [address] [facility] [address], [place], [address], 11/25/2017 09:13:18 11/26/19 18 11/25/2017 urina lysis , dipst ick pH 5.5 Not Available [facility] Internal Medicine [address] [facility] [address], [place], [address], 11/25/2017 09:13:18 11/26/19 18 11/25/2017 urina lysis , dipst ick Blood Negati ve Not Available [facility] Internal Medicine [address] [facility] [address], [place], [address], 11/25/2017 09:13:18 11/26/19 18 11/25/2017 urina lysis , dipst ick Specific [place] 1.025 Not Available [facility] Internal Medicine [address] [facility] [address], [place], [address], 11/25/2017 09:13:18 11/26/19 18 11/25/2017 urina lysis , dipst ick Ketone Negati ve Not Available [facility] Internal Medicine [address] [facility] [address], [place], [address], 11/25/2017 09:13:18 11/26/19 18 11/25/2017 urina lysis , dipst ick Bilirubin Negati ve Not Available [facility] Internal Medicine [address] [facility] [address], [place], [address], 11/25/2017 09:13:18 11/26/19 18 11/25/2017 urina lysis , dipst ick Glucose Negati ve Not Available [facility] Internal Medicine [address] [facility] [address], [place], [address], 11/25/2017 09:13:18 11/26/19 18 11/25/2017 urina lysis , dipst ick Appearance Clear Not Available [facility] Internal Medicine [address] [facility] [address], [place], [address], 11/25/2017 09:13:18 11/26/19 18 11/25/2017 urina lysis , dipst ick Color Yellow Not Available [facility] Internal Medicine [address] [facility] [address], [place], [address], 11/25/2017 09:13:18 12/16/19 19 12/15/2018 urina lysis , dipst ick Leukocytes Negati ve Not Available [facility] Internal Medicine [address] [facility] [address], [place], [address], 12/15/2018 13:30:36 12/16/1912/15/2018 urina lysis , dipst ick Nitrite negati ve Not Available [facility] Internal Medicine [address] [facility] [address], [place], [address], 12/15/2018 13:30:36 12/16/1912/15/2018 urina lysis , dipst ick Urobilinogen .2 Not Available [facility] [address] [facility] [address], [place], [address], 12/15/2018 13:30:36 12/16/1912/15/2018 urina lysis , dipst ick Protein Negati ve Not Available [facility] Medicine [address] [facility] [address], [place], [address], 12/15/2018 13:30:36 12/16/1912/15/2018 urina lysis , dipst ick pH 6.0 Not Available [facility] Internal Medicine [address] [facility] [address], [place], [address], 12/15/2018 13:30:36 12/16/1912/15/2018 urina lysis , dipst ick Blood Negati ve Not Available [facility] Internal Medicine [address] [facility] [address], [place], [address], 12/15/2018 13:30:36 12/16/1912/15/2018 urina lysis , dipst ick Specific [place] 1.015 Not Available [facility] Internal Medicine [address] [facility] [address], [place], [address], 12/15/2018 13:30:36 12/16/1912/15/2018 urina lysis , dipst ick Ketone Negati ve Not Available [facility] Internal Medicine [address] [facility] [address], [place], [address], 12/15/2018 13:30:36 12/16/1912/15/2018 urina lysis , dipst ick Bilirubin Negati ve Not Available [facility] Internal Medicine [address] [facility] [address], [place], [address], 12/15/2018 13:30:36 12/16/1912/15/2018 urina lysis , dipst ick Glucose Negati ve Not Available [facility] Internal Medicine [address] [facility] [address], [place], [address], 12/15/2018 13:30:36 12/16/1912/15/2018 urina lysis , dipst ick Appearance Clear Not Available [facility] Internal [facility] [address] [facility] [address], [place], [address], 12/15/2018 13:30:36 12/16/1912/15/2018 urina lysis , dipst ick Color Pale Yellow Not Available [facility] Internal Medicine [address] [facility] [address], [place], [address], 12/15/2018 13:30:36 04/20/1904/15/2018 alejandrina beltran am No observ ation record ed. [facility] Cardiology [address] [place] [address], [place], [address], 04/19/2018 10:57:39 Result Notes None recorded. Problems Name Problem SNOMED Code Status Onset Date Resolution Date Notes Provider Name and Address Organization Details Recorded Time Essential hypertensio n 47693001 Active 2017 Mary Jo de la garza MA [facility] Internal Medicine 13:27:36 Depressive disorder 38548440 Active 2017 Mary Jo de la garza MA [facility] Internal Medicine 13:27:36 Benign prostatic hyperplasia 916595366 Active 2017 Mary Jo de la garza [facility] Internal Medicine 13:27:37 History of malignant basal cell neoplasm of skin 763514097 Active 2017 Mary Jo de la garza [facility] Internal Medicine 9 13:27:37 Osteoarthri tis of knee 562747563 Active 2018 right replaced 2009,left replaced 2018 Mary Jo de la garza [facility] Internal Medicine 9 13:27:37 Problem Notes None recorded. Procedures Surgical History Date Name Laterality Status Provider Name and Address Organization Details Recorded Time 04/17/19 19 total replacement of left knee joint completed Belinda Guerin NP, S [address] [place] [address], [address], [facility] Internal [facility] 06/08/2018 08:48:22 Knee Surgery completed Belinda clay NP, S [address] [place] [address], [address], [facility] Internal Medicine 06/08/2017 13:09:11 Carpal tunnel surgery completed Belinda Guerin NP, S [address] [place] [address], [address], [facility] Internal [facility] 06/08/2017 13:09:32 Hernia Repair completed Belinda mae NP, S [address] [place] [address], [address], [facility] Internal [facility] 06/08/2017 13:10:12 Cataract Surgery completed Belinda Guerin NP, S [address] [place] [address], [address], [facility] Internal Medicine 06/08/2017 13:10:22 Imaging Results None recorded. Procedure Notes None recorded. Medical Equipment None Reported. Allergies No known drug allergies Medications Name Sig Start Date Stop Date Status Note LastModified by Organization Details LastModified Time oxycodone-ranjan taminophen 5 mg-325 mg tablet 07/20 completed Not Available Not Available Not Available diazepam 2 mg tablet 1 po daily prn 2018 active Not Available Not Available Not Avai lable erythromycin 5 mg/gram (0.5 %) eye ointment 07/20 completed Not Available Not Available Not Available doxazosin 4 mg tablet TAKE 1 TABLET BY MOUTH EVERY DAY NEEDED 2019 active Not Available Not Available Not Avai lable sertraline 50 mg tablet TAKE 1 TABLET BY MOUTH EVERY DAY 2019 active Not Available Not Available Not Avai lable Fish Oil active Not Available Not Avai lable Not Available alprazolam PRN 04/19 completed Not Available Not Available Not Available Glucosamine 04/19 completed Not Available Not Available Not Available Prevnar 13 (PF) 0.5 mL intramuscular syringe 12/15 completed Not Available Not Available Not Available Probiotic active Not Available Not Tayler ilable Not Available Fluzone High-Dose 9624-3663 (PF) 180 mcg/0.5 mL intramuscular syringe 06/08 completed Not Available Not Available Not Available Fluzone High-Dose 9029-3517 (PF) 180 mcg/0.5 mL intramuscular syringe 11/25 completed Not Available Not Available Not Available Vitals Date Recorded Body height Body mass index (BMI) Body weight Heart rate Oxygen saturation Systolic And Diastolic Provider Name and Address Organization Details Last Updated DateTime 9 169.55 cm 27.2 kg/m2 93147.6 8 g 60 /min 97 % 136/86 mm[Hg] Mary Jo Ding [facility] Internal Medicine 9 15:38:32 Date Recorded Body height Body mass index (BMI) Body weight Heart rate Oxygen saturation Body temperature Systolic And Diastolic Provider Name and Address Organization Details Last Updated DateTime 8 169.55 cm 26.9 kg/m2 18127.7 8 g 81 /min 98 % 98.1 [degF] 114/74 mm[Hg] [facility] 8 11:42:11 Date Recorded Body height Body mass index (BMI) Body weight Oxygen saturation Heart rate Systolic And Diastolic Provider Name and Address Organization Details Last Updated DateTime 8 169.55 cm 26.9 kg/m2 37440.4 2 g 98 % 63 /min 110/60 mm[Hg] [facility] Internal [facility] 8 09:12:52 Date Recorded Body height Body mass index (BMI) Body weight Heart rate Oxygen saturation Systolic And Diastolic Provider Name and Address Organization Details Last Updated DateTime 8 169.55 cm 26.8 kg/m2 69757.7 g 60 /min 98 % 114/64 mm[Hg] [facility] Internal Medicine 8 09:14:25 Date Recorded Body height Body mass index (BMI) Body weight Heart rate Oxygen saturation Systolic And Diastolic Provider Name and Address Organization Details Last Updated DateTime 9 168.91 cm 26.7 kg/m2 57212.2 4 g 80 /min 97 % 120/76 mm[Hg] Mary Jo Ding [facility] Internal Medicine 9 13:31:27 Social History Question Answer Notes LastModified by Organizat ion Details LastModified Time Tobacco Smoking Status Former Smoker Not Available [employer] 12/20/2019 03:36:23 What Was The Date Of Your Most Recent Tobacco Screening? 04/19/2018 [id number] Information not available 12/20/2019 Sex: Unknown Functional Status None recorded. Mental Status None recorded. Family History Relationship Description Onset Age of this Age Resolved Age Notes LastModified by Organization Details LastModified Time Mother Leukemia 74 freida Not available 07/20/2017 08:48:30 Medical History Condition Response Heart Problems N Gout N Other Y Blood Diseases N Kidney Stones N Hyperthyroidism N Blood Transfusion N Breast Cancer N Thyroid Problems N COPD N Hypothyroidism N Depression Y Lung Disease N GI Problems N Defects or Inherited Disease N Skin Problems Y Anemia N Anesthesia Complications N Anxiety Disorder Y Vision or Eye Problems Y Arthritis Y Tuberculosis N Cancer Y Eczema N Abuse/Domestic Violence N Asthma N Bladder or Kidney Problems N High Cholesterol Y Hepatitis N Liver Disease N Heart Disease N Fibromyalgia N Headaches N Hypertension N Chicken Pox Y Autism Spectrum Disorder (ASD) N Kidney Disease N Thrombophilias N Immunizations Vaccine Type Date Status Note Provider Nam e and Address Organization Details Recorded Time Pneumococcal conjugate PCV 13 8 completed Mary Jo de la garza [facility] Internal Medicine 12/15/2018 13:27:41 pneumococcal, unspecified formulation 0 completed Mary Jo de la garza [facility] Internal Medicine 12/15/2018 13:27:42 Tdap 3 completed Mary Jo de la garza [facility] Internal Medicine 12/15/2018 13:27:42 Influenza, split virus, quadrivalent, preservative 9 completed Mary Jo de la garza [facility] Internal Medicine 12/15/2018 13:27:42 Past Encounters Encounter ID Performer Location Encounter Start Date Encounter Closed Date Diagnosis/Indication Diagnosis SNOMED-CT Code Diagnosis ICD10 Code Diagnosis IMO Codes Diagnosis Note [id number] Alvin Isabel Rowan [address] [address] 06/08/2017 11:33:07 06/08/2017 13:42:38 Pre-surgery evaluation 184337989 Z01.818 cleared for proposed procedure [id number] Alvin CamargoChaya Rowan [facility] Internal [address],[place] [address] 07/20/2017 09:04:08 07/20/2017 17:07:10 History of malignant basal cell neoplasm of skin 115867686 Z85.828 up to date with dermatolog y Essential hypertension 50735499 I10 well controlled Benign pro static hyperplasia 338688674 N40.0 stable Depressive disorder 3548 9007 F32.89 well controlled Anxiety 02950634 F41.9 prn valium, continue healthy exercise [id number] Alvin Rowan [address],[place] [address] 11/25/2017 09:02:03 11/25/2017 14:03:05 Adult health examination 389259132 Z00.01 Active or passive immunization 595355597 Z23 discussed shingles and pneumonia Screening procedure 2012 5006 Z13.9 Benign pro static hyperplasia 438848818 N40.0 more enlarged than previous Essential hypertension 88775419 I10 well controlled Vitamin D deficiency 347 [address]126 E55.9 History of malignant basal cell neoplasm of skin 020211662 Z85.828 up to date with dermatolog y Depressive disorder 3548 9007 F32.89 well controlled Decreased hearing 933120 001 H91.93 Pt. to call [facility] in [place] for appt. has been in past [id number] Al[address] Rowan [address],[place] [address] 04/19/2018 15:27:43 04/19/2018 16:31:24 Pre-surgery evaluation 211694584 Z01.818 clear for surgery base on eval, labs, ekg Knee pain 49135381 M25.5 69 Benign pro static hyperplasia 810507487 N40.0 controlled with doxazosin Essential hypertension 09230327 I10 controlled with doxazosin [address]2550 DO Bob Ramirez Internal Medicine [address],[place] [address] 12/15/2018 13:16:07 12/15/2018 13:58:54 Adult health examination 879904994 Z00.01 HCP significan t other - lenin will give PPW for HCP Active or passive immunization 883577828 Z23 on a list for shingles Benign pro static hyperplasia 522347329 N40.0 seeing urology Essential hypertension 31518647 I10 well controlled Vitamin D deficiency 347 94346 E55.9 History of malignant basal cell neoplasm of skin 936798411 Z85.828 up to date with dermatolog y Depressive disorder 3548 9007 F32.89 well controlled Decreased hearing 376003 001 H91.93 had hearing aid fixed after last year Body mass index 25-29 - overweight 162722455 Z68.26 Ex-smoker 6368567 Z87.89 1 Health Concerns Section Related Observation LastModified by Organization Detai ls LastModified Time None Recorded Concern Status LastModified by Organization Details LastModified Time None Recorded Advance Directives Directive None Recorded Payers Insurance Date Sequence Insurance Name Policy Number Policy Blake Covered Member ID Blake Member ID Guarantor Name 12/15/2018 1 [employer] - MEDICARE ADVANTAGE PLAN (MEDICARE REPLACEMENT HMO) [id number] [employer] [id number] [employer] Notes Date Note Type Note Provider Name and Address Organization Details Recorded Time 8 text/html Pre-OpReported by PatientHPIFor severity, patient reportsmoderate. For risk factors, patient reportsno cognitive impairment,no functional impairment,no malnutrition,no frailty,able to climb a flight of stairs (exercise capacity>4 mets),no obstructive sleep apnea,non-smoker,no chronic cardiopulmonary condition, andnot obese. For anesthesia hx, patient reportsno hx of anesthesia complicationsandno family history of anesthesia complications. For functional ability, patient reportsable to walk up stairs,able to perform heavy work around the house,no difficulty walking up hills, andable to walk 4 mph(rides bike regularly). For post-op support, patient reportsno need for assistance. For surgery to be performed, (bilateral upper lid blepharoplastyleft upper lid levator resection). For context/condition being addressed, (ptosis, dermatochalsis). Belinda Guerin NP, S [address] [place] [address], [address], [facility] 06/08/2017 13:06:26 8 text/html ROS as noted in the HPI Routine Appt S/P bilat. 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 For fracture risk, patient reportsno history of fractures,no recent explained fracture,no sudden unexplained fractures, andno previous musculoskeletal injuries. For physical activity, patient reportsexercises on a regular basisandgood physical condition. For additional lifestyle factors, patient reportsno tobacco use.Mental Status:For depression risk, patient reportsfeels sad, empty, or tearfulandhistory of depressionbut reportsno significant changes in weight,no sleep disturbances or insomnia,no agitation,no thoughts of suicide, andno history of mood disorders(stable with sertraline).Functional AbilityFor hearing, patient reportsloss of hearing: in both ears(has heaaring aide, not working, needs new). For vision, patient reportsno vision problems(wearsglasses). Belinda Guerin NP, S [address] [place] [address], [address], [facility] 11/25/2017 09:58:34 9 text/html Pre-OpReported by PatientHPIFor risk factors, patient reportsno cognitive impairment,no functional impairment,no malnutrition,no frailty,able to climb a flight of stairs (exercise capacity>4 mets),no obstructive sleep apnea,non-smoker,no alcohol misuse,no illicit drug use,no chronic cardiopulmonary condition, andnot obese. For anesthesia hx, patient reportsno hx of anesthesia complications. For functional ability, patient reportsable to walk up stairs,able to perform heavy work around the house,no difficulty walking up hills, andable to walk 4 mph. For post-op support, patient reportsneeds help arranging assistance after discharge. For surgery to be performed, (left knee replacement due 05/10/17). For context/condition being addressed, (knee oa). For location, (left).ROS as noted in the HPI May RONNI Moyer [address] [place] [address], [address], [facility] 04/19/2018 15:55:09 9 text/html Medicare Annual Wellness VisitReported by PatientSocial/Behaviora l HistoryFor fracture risk, patient reportshistory of fracturesbut reportsno recent explained fracture,no sudden unexplained fractures, andno previous musculoskeletal injuries. For diet and nutrition, patient reportshealthy diet. For physical activity, patient reportsexercises on a regular basis.Mental Status:For depression risk, patient reportshistory of depression (on sertraline - working well). For orientation, patient reportsno disorientation to time,no disorientation to date, andno disorientation to place. For concentration and memory, patient reportsno decreased concentrating ability,no memory lapses or loss, anddoes not forget words. For speech/motor difficulties, patient reportsno speech difficulties,no difficulty expressing formulated concepts,no difficulty with fine manipulative tasks,no difficulty writing/copying,no slowed reaction time, anddoes not knock things over when trying to pick them up.Functional AbilityFor home safety, patient reportsdoes not have hand bars in the bathroom/showerbut reportsno unsafe rex hazzards,no unsafe stairs,no unsafe gas appliances,working smoke/co detectors,use of seatbelts,no vision or hearing loss while driving, andgood lighting in the home. For hearing, patient reportswears hearing aids. For vision, patient reportsno vision problems (utd on eye exam). For activities of daily living, patient reportsable to bathe with limited or no assistance,able to contol urination and bowels,able to dress with limited or no assistance,able to feed self with limited or no assistance,able to get out of chair or bed with limited or no assistance,able to groom with limited or no assistance, andable to toilet with limited or no assistance. For instrumental activities of daily living, patient reportsable to do house work with limited or no assistance,able to grocery shop with limited or no assistance,able to manage medications with limited or no assistance,able to manage money with limited or no assistance,able to prepare meals with limited or no assistance, andable to use the phone with limited or no assistance. For falls risk assessment, patient reportsno frequent falls while walking,no fall in the past year,no fall since last visit, andno dizziness/vertigo.ROS as noted in the HPI May RONNI Moyer [address] [place] [address], [place], [address], PASCUAL [facility] 12/15/2018 13:53:35
--- OUTSIDE RECORDS SUMMARY | 2025-01-31 08:15 | XMS_ITS | Patient Health Record ---
Author Organization [facility] Address [address] [place] [id number] Care Team Providers Care Players Assistant Name Role Phone Shaila Whitaker Primary Care Provider Argelia Wetzel Unavailable [phone] Reason For Referral No Information Medications Medication SIG (Take, Route, Frequency, Duration) Notes Start Date End Date Status diazePAM 2 MG Tablet (Schedule IV Drug) TAKE 1 TABLET BY MOUTH EVERY DAY Oral; Duration: 90 PRN anaxiety Active Sertraline HCl 50 MG Tablet 1 tablet Orally Once a day Active Doxazosin Mesylate 4 MG Tablet 1 tablet Orally Once a day Active Fish Oil 1000 MG Capsule 1 capsule Orally Once a day Active Immunizations Vaccine Route Administration Date Status Comme nts Influenza Unknown 11/16/2018 Administered Social History Social History Additional Details Category Social Info Options Details Miscellaneous: 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 Marital status: Occupation: Worked for the [employer] in [place], 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 Living with: Significant othe r Section Notes: Nonsmoker since 1988; no alc ohol Nonsmoker since 1988; no alc ohol Problems Problem Type SNOMED Code ICD Code Onset Dates Problem Status W/U Status Risk Notes Problem Screening for malignant neoplasm of colon (400193572) Encounter for screening for malignant neoplasm of colon (Z12.11) Active confirmed Problem History of adenomatous polyp of colon (896593048) History of adenomatous polyp of colon (Z86.010) Active confirmed Problem Preprocedural examination (443944112738354) Preprocedural examination (Z01.818) Active confirmed Encounters Encounter Location Date Provider Diagnosis [facility] [address] [place] [address] 08/12/2024 Argelia Reyes Plan Of Treatment Future Test Test Name Order Date COLONOSCOPY 06/15/2014 COLONOSCOPY 08/16/2019 Insurance Providers Payer Name Payer Address Payer Phone Subscriber Number Group Number Insured Name Patient Relationship to Insured Coverage Start Date Coverage End Date [facility] [address] [place] [phone] [id number] ARGELIA PENA Self - patient is the insured Medical (General) History Medical History History ICD Code Screening colonoscopy 12-5-2 005--only hyperplastic polyps--moderate sigmoid diverticulosis, internal hemorrhoids HTN- controlled Denies ME,DM,CVA,Lung disease,renal dise ase Depression BPH Colonoscopy 07/2014 with a small tubular adenoma removed Surgical History Surgery Date(Month/Year) Right knee replacement--approx 2010 Hernia repair-right inguinal Cataract-lens implants-both eyes Prostate ikproji-fqnoqpiaiyzqf-sed BPH Knee replacement on the left 04/2018
--- OUTSIDE RECORDS SUMMARY | 2025-01-31 08:15 | XMS_ITS | Clinical Summary ---
Author Organization [facility] Address [address] [place], [place] [id number] Phone Care Team Providers Care Biology Adjunct Instructor Name Role Phone Pcp, Unknown Primary Care Provider Unavailabl e Social History Tobacco Use Types Packs/Day Years Used Date Smoking Tobacco: Never Assessed Education Answer Date Recorded Are you interested in more education? Not on dre e 06/13/2022 Are you concerned about learning? Not on file 06/13/2022 No 06/13/2022 No 06/13/2022 Digital Access Answer Date Recorded No 07/14/2022 No 07/14/2022 No 07/14/2022 Reliable internet access at home? Not on file 07/14/2022 Device with a working camera? Not on file Sex and Gender Information Value Date Recorded Sex Assigned at Not on file Legal Sex Male 10:07 PM EDT Gender Identity Not on file Sexual Orientation Not on file Plan of Treatment Not on file Medical Devices Not on file Insurance [employer] [place] HMO REPLACEMENT [employer] [place] MED[employer] HMO REPLACEMENT MEDICARE HMO REPLACEMENT MEDICARE HMO [place] [address] [place] [address] MEDICARE HMO REPLACEMENT MEDICARE HMO REPLACEMENT [employer] [place] MED[employer] HMO REPLACEMENT MEDICARE HMO REPLACEMENT [employer] [place] [employer] HMO REPLACEMENT Care Teams Biology Adjunct Instructor Relationship Specialty Start Date End Date Pcp, Unknown PCP - General 09/16/19 Additional Source Comments The information contained in this document represents components of the legal health record. It is not the complete legal health record.[facility]
== END 2025-01-31 08:53 | disposition home or self-care (01) ==
LOC: HO.HMCH 08:03
PROVIDERS: PCP Internal Medicine; Visit Provider Internal Medicine
DX: F32.0 Major depressive disorder, single episode, mild (principal); F41.1 Generalized anxiety disorder; Z23 Encounter for immunization

== ENCOUNTER → 2025-01-31 08:02 | Outpatient (BNVA) | payer MEDICARE, SELFPAY | PROVIDERS: PCP Internal Medicine; Visit Provider Internal Medicine | DX: Z23 Encounter for immunization (principal); F32.0 Major depressive disorder, single episode, mild; F41.1 Generalized anxiety disorder | CPT/HCPCS: 90471; 90677; 99212 ==